=== PATIENT | female | born 1985 | race Two or more races ===

== ENCOUNTER 2020-05-29 14:28 | Emergency (ER) | payer OTHER ==
[~2020-05-29] VITALS: Ht 142.2 cm; Wt 77.2 kg
[2020-05-29 14:41] VITALS: BP 137/77
[2020-05-29 16:54] LABS: ALBUMIN 3.9 g/dL (3.4-5.0); CALCIUM 8.9 mg/dL (8.5-10.1); CREATININE 0.67 mg/dL (0.55-1.02)
[2020-05-29 17:04] LABS: CHLORIDE 111 mmol/L (98-107)
[2020-05-29 17:05] LABS: ANION GAP 4 mmol/L (5-15)
[2020-05-29 17:58] LABS: BASOPHILS % (AUTO) 0 % (0-1); EOSINOPHILS % (AUTO) 5 % (1-7); LYMPHOCYTES % (AUTO) 46 % (22-44); MEAN CORPUSCULAR HEMOGLOBIN 30.8 pg (27.0-34.8); MONOCYTES % (AUTO) 10 % (2-9); NEUTROPHILS % (AUTO) 39 % (42-75); PLATELET COUNT 249 x10^3/uL (130-400); RED BLOOD COUNT 4.75 x10^6/uL (3.82-5.3); RED CELL DISTRIBUTION WIDTH 12.6 % (9.6-15.2)
[2020-05-29 18:03] LABS: MD NO
--- NOTE | 2020-05-29 18:46 | NUR ---
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
--- NOTE | 2020-05-29 18:53 | NUR ---
PT. TO ED WITH FRIEND. PT. DECLINES [employer] AND REQUEST FRIEND TO TRANSLATE FOR HER. PT. REQUESTING BR UPON ENTERING ROOM; TO BR WITH STEADY GAIT AND URINE CUP. FRIEND EXPLAINED CLEAN CATCH UA INSTRUCTIONS TO PT. PT. C/O CP, FEVER X 3 DAYS.
--- NOTE | 2020-05-29 19:05 | NUR ---
DR. CLIFFORD TO BS TO EVAL PT. AND DISCUSS POC.
== END 2020-05-29 19:47 | disposition home or self-care (01) ==
LOC: ED 19:41
DX: U07.1 COVID-19 (principal); O98.511 Other viral diseases complicating pregnancy, first trimester; O99.511 Diseases of the respiratory system complicating pregnancy, first trimester; J06.9 Acute upper respiratory infection, unspecified; R94.31 Abnormal electrocardiogram [ECG] [EKG]; Z3A.08 8 weeks gestation of pregnancy
CPT/HCPCS: 71045; 80048; 82040; 85025; 87635; 93005; 99285

== ENCOUNTER 2020-06-19 14:53 | Emergency (ER) | payer OTHER ==
[~2020-06-19] VITALS: Ht 154.9 cm; Wt 76.5 kg
[2020-06-19 16:43] LABS: BASOPHILS % (AUTO) 1 % (0-1); EOSINOPHILS % (AUTO) 3 % (1-7); LYMPHOCYTES % (AUTO) 30 % (22-44); MD NO; MEAN CORPUSCULAR HEMOGLOBIN 30.9 pg (27.0-34.8); MEAN CORPUSCULAR HGB CONC 33.7 g/dL (32.4-35.8); MEAN PLATELET VOLUME 8.9 fL (7.4-10.4); MONOCYTES % (AUTO) 7 % (2-9); NEUTROPHILS % (AUTO) 60 % (42-75); PLATELET COUNT 227 x10^3/uL (130-400); RED BLOOD COUNT 4.46 x10^6/uL (3.82-5.3); RED CELL DISTRIBUTION WIDTH 12.5 % (9.6-15.2)
--- NOTE | 2020-06-19 16:54 | NUR ---
TASK RN: HERON COLLECTED AND WALKED TO LAB
[2020-06-19 17:01] LABS: ALANINE AMINOTRANSFERASE 28 U/L (12-78); ALBUMIN 3.4 g/dL (3.4-5.0); ANION GAP 7 mmol/L (5-15); CALCIUM 8.7 mg/dL (8.5-10.1); CHLORIDE 107 mmol/L (98-107); CREATININE 0.86 mg/dL (0.55-1.02)
[2020-06-19 17:11] LABS: ALKALINE PHOSPHATASE 115 U/L (45-117); BILIRUBIN,TOTAL 0.2 mg/dL (0.2-1.0); TOTAL PROTEIN 7.2 g/dL (6.4-8.2)
[2020-06-19 17:49] LABS: MICROSCOPIC INDICATED
[2020-06-19 19:08] VITALS: BP 124/71
== END 2020-06-19 19:10 | disposition home or self-care (01) ==
LOC: ED 19:00
DX: U07.1 COVID-19 (principal); N30.00 Acute cystitis without hematuria; R00.1 Bradycardia, unspecified
CPT/HCPCS: 36415; 71045; 80053; 81001; 83690; 84443; 84703; 85025; 87086; 87635; 93005; 99285

== ENCOUNTER 2020-10-02 14:49 | Emergency (ER) | payer SELFPAY ==
[~2020-10-02] VITALS: Ht 154.9 cm; Wt 77.2 kg
--- NOTE | 2020-10-02 15:39 | NUR ---
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
--- NOTE | 2020-10-02 15:44 | NUR ---
UA WALKED TO LAB.
[2020-10-02 15:54] LABS: MICROSCOPIC NOT IND
[2020-10-02 16:12] LABS: BASOPHILS % (AUTO) 1 % (0-1); EOSINOPHILS % (AUTO) 2 % (1-7); LYMPHOCYTES % (AUTO) 35 % (22-44); MEAN CORPUSCULAR HEMOGLOBIN 31.1 pg (27.0-34.8); MEAN CORPUSCULAR HGB CONC 33.5 g/dL (32.4-35.8); MEAN PLATELET VOLUME 8.1 fL (7.4-10.4); MONOCYTES % (AUTO) 8 % (2-9); NEUTROPHILS % (AUTO) 55 % (42-75); PLATELET COUNT 263 x10^3/uL (130-400); RED BLOOD COUNT 4.47 x10^6/uL (3.82-5.3); RED CELL DISTRIBUTION WIDTH 12.8 % (9.6-15.2)
[2020-10-02 16:20] LABS: MD NO
[2020-10-02 16:24] LABS: ALANINE AMINOTRANSFERASE 27 U/L (12-78); ALBUMIN 3.7 g/dL (3.4-5.0); ANION GAP 5 mmol/L (5-15); CALCIUM 8.6 mg/dL (8.5-10.1); CHLORIDE 108 mmol/L (98-107); CREATININE 0.56 mg/dL (0.55-1.02)
[2020-10-02 16:28] LABS: ALKALINE PHOSPHATASE 98 U/L (45-117); BILIRUBIN,TOTAL 0.5 mg/dL (0.2-1.0); TOTAL PROTEIN 7.5 g/dL (6.4-8.2)
--- NOTE | 2020-10-02 16:52 | NUR ---
PT GIVEN BLANKETS. RESTING, WAITING FOR US
[2020-10-02 18:49] VITALS: BP 115/86
--- NOTE | 2020-10-02 18:50 | NUR ---
Patient/Caregiver given discharge instructions and they have confirmed that they understand the instructions. Patient ambulatory with steady gait.
== END 2020-10-02 18:50 | disposition home or self-care (01) ==
LOC: ED 18:40
DX: R10.2 Pelvic and perineal pain (principal); N91.2 Amenorrhea, unspecified; N85.8 Other specified noninflammatory disorders of uterus
CPT/HCPCS: 36415; 76830; 80053; 81003; 84443; 84702; 85025; 99284